=== PATIENT | male | born 1960 | race Two or more races ===

== ENCOUNTER 2024-05-26 17:31 | Emergency (ER) | payer MEDICAID, SELFPAY ==
[2024-05-26 19:12] VITALS: BP 138/84; PULSE 73; RESP 17; TEMP 36.8; O2SAT 98
--- NOTE | 2024-05-26 19:24 | XR_ITS ---
Examination: PA lateral chest 2 views Technique: Upright PA lateral chest 2 views Exam date and time: May 26, 20242014 hrs. Indications: Fever chills beginning 3 days ago Findings: Normal heart size No pneumonia or pulmonary edema The osseous structures are intact Impression: No pneumonia or pulmonary edema
--- NOTE | 2024-05-26 19:26 | PD.EDRME ---
Rapid Medical Screening Exam RME Arrival date/time: 05/26/24 17:31 64 year old male present to ED for c/o flu like sx I have greeted and performed a focused initial assessment of this patient. A comprehensive ED assessment and evaluation of the patient, analysis of all test results, and completion of the medical decision making process will be conducted by additional ED providers. Chief Complaint: Flu Like Symptoms Time Seen by Provider: 05/26/24 17:56 Vital signs: Vital Signs Temperature 98.3 F 05/26/24 19:12 Pulse Rate 73 05/26/24 19:12 Respiratory Rate 17 05/26/24 19:12 Blood Pressure 138/84 H 05/26/24 19:12 Pulse Oximetry (%) 98 05/26/24 19:12 Oxygen Delivery Method Room Air 05/26/24 19:12
[2024-05-26 20:04] LABS: Basophils % (Auto) 0 % (0-2.5); Eosinophils # (Auto) 0.1 Thou/mm3 (0.0-0.5); Eosinophils % (Auto) 2 % (0-10); Hematocrit 39.9 % (41.0-53.0); Immature Granulocytes % (Auto) 0 % (0-0); Immature Granulocytes Auto 0.01 Thou/mm3 (0.00-0.00); Lymphocytes # (Auto) 1.6 Thou/mm3 (1.0-4.8); Lymphocytes % (Auto) 21 % (10-50); Mean Corpuscular HGB Conc 35.1 g/dl (31.0-37.0); Mean Corpuscular Hemoglobin 33.2 pg (25.0-35.0); Mean Corpuscular Volume 95 fL (80-100); Monocytes # (Auto) 0.6 Thou/mm3 (0.0-0.8); Monocytes % (Auto) 7 % (0-12); Neutrophils # (Auto) 5.5 Thou/mm3 (1.8-7.7); Neutrophils % (Auto) 70 % (37-80); Nucleated Red Blood Cell % 0 /100 WBC (0); Platelet Count 263 Thou/mm3 (140-440); RDW Standard Deviation 45.3 fL (35.1-43.9); Red Blood Count 4.22 Miln/mm3 (4.50-5.90); White Blood Count 7.8 Thou/mm3 (3.8-10.6)
[2024-05-26 20:24] VITALS: BP 156/91; PULSE 80; RESP 18; TEMP 36.9; O2SAT 97
[2024-05-26 20:25] LABS: Alanine Aminotransferase 34 U/L (10-49); Albumin, Serum 4.2 gm/dL (3.4-4.8); Albumin/Globulin Ratio 1.6 (1.2-2.2); Alkaline Phosphatase 71 U/L (46-116); Anion Gap 6 (7-16); Aspartate Amino Transferase 43 U/L (0-34); BUN/Creatinine Ratio 23 Ratio (12-20); Bilirubin,Total 0.3 mg/dL (0.3-1.2); Blood Urea Nitrogen 18 mg/dL (9-23); Calcium 9.7 mg/dL (8.3-10.6); Calcium (Corrected) 9.7 mg/dL (8.5-10.1); Carbon Dioxide 25.7 mMol/L (20.0-31.0); Chloride 107 mMol/L (98-107); Creatinine (Component) 0.8 mg/dL (0.6-1.3); Globulin 2.7 gm/dL (2.3-3.5); Glucose 92 mg/dL (74-106); Osmolality,Calculated 279 (275-295); Sodium 139 mMol/L (136-145); Total Protein 6.9 gm/dL (5.7-8.2); Troponin I < 0.020 ng/mL (0.0-0.045); eGFR > 60 See Note
[2024-05-26 22:58] VITALS: BP 161/92; PULSE 68; RESP 19; TEMP 36.7; O2SAT 98; BMI 25.4
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
== END 2024-05-27 00:11 | disposition home or self-care (01) ==
PROVIDERS: Physician Assistant; Emergency Provider Emergency Medicine
DX: G47.00 Insomnia, unspecified (principal); R53.1 Weakness; R50.9 Fever, unspecified; I10 Essential (primary) hypertension
CPT/HCPCS: 36415; 71046; 80053; 84484; 85025; 87400; 87811; 93005; 99283

== ENCOUNTER 2025-02-25 12:18 | Emergency (ER) | payer OTHER, SELFPAY ==
[2025-02-25 12:22] VITALS: BP 155/88; PULSE 86; RESP 18; TEMP 37; O2SAT 98
[2025-02-25 12:59] VITALS: BMI 25.1
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
[2025-02-25 14:24] VITALS: BP 166/97; PULSE 73; RESP 17; TEMP 36.9; O2SAT 98
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
[2025-02-25] MEDS: HYDROcodone/APAP 5/325 TABLET 1 TAB PO (15:55)
--- NOTE | 2025-02-25 16:12 | XR_ITS ---
Examination: PA lateral chest 2 views TECHNIQUE: Upright PA lateral chest 2 views Date and time: February 25, 2025 1625 hours INDICATIONS: Large bleb in the right lung on CT chest study today with bilateral rib fractures FINDINGS: Large bleb is confirmed in the anterior right lung, no pneumothorax Please see the CT chest report for description bilateral rib fractures, fractures right eighth and ninth ribs noted on this study lower right chest IMPRESSION: Large lead in the anterior right lung, no pneumothorax
[2025-02-25 16:20] VITALS: BP 148/86; PULSE 83; RESP 16; TEMP 36.9; O2SAT 99
[2025-02-25 17:38] VITALS: BP 138/76; PULSE 82; RESP 16; TEMP 36.9; O2SAT 99
== END 2025-02-25 17:39 | disposition home or self-care (01) ==
PROVIDERS: Emergency Provider Family Medicine
DX: Z02.89 Encounter for other administrative examinations (principal); S22.41XA Multiple fractures of ribs, right side, initial encounter for closed fracture; Y04.0XXA Assault by unarmed brawl or fight, initial encounter; R51.9 Headache, unspecified; M54.2 Cervicalgia
CPT/HCPCS: 70450; 70486; 71046; 71101; 71250; 72125; 99284; A9270